=== PATIENT | male | born 1970 | race African-American/Black ===

== ENCOUNTER 2018-09-20 13:58 | Inpatient (IN) | payer OTHER ==
[2018-09-20 17:37] VITALS: BMI 743.6
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
[2018-09-20] MEDS ORDERED: MAG HYDROX/AL HYDROX/SIMETH 30 ML UNIT-DOSE CUP PO PRN (19:25)
[2018-09-20] MEDS ORDERED: MAGNESIUM CITRATE 300 ML BOTTLE PO PRN (19:25)
[2018-09-20] MEDS ORDERED: MAGNESIUM HYDROX 2400MG/30ML ORAL SUSPENSION 30 ML CUP PO PRN (19:25)
[2018-09-20] MEDS ORDERED: cloNIDine HCL 0.1 MG TABLET PO PRN (19:26)
[2018-09-20] MEDS ORDERED: TUBERCULIN PPD 5 TU/0.1ML VIAL ID ONE (20:31)
[2018-09-20] MEDS: THIAMINE HCL 100 MG TABLET (FP) PO SCH (21:22)
[2018-09-20] MEDS: MELATONIN 5 MG TABLETS PO PRN (21:22)
[2018-09-20] MEDS: hydrOXYzine PAMOATE 50 MG CAPSULE (FP) PO PRN (21:23)
[2018-09-21] MEDS: guaiFENesin/D-METHORPHAN HB 10 ML UNIT-DOSE CUPS PO PRN ×2 (07:00→21:38)
[2018-09-21] MEDS: PRENATAL VITAMINS W/ FOLIC ACID TABLET (FP) PO SCH (11:25)
[2018-09-21] MEDS: ATENOLOL 50 MG TABLET (FP) PO SCH (11:25)
[2018-09-21] MEDS: ACETAMINOPHEN 325 MG TABLET (FP) PO PRN ×2 (11:28→21:39)
[2018-09-21] MEDS ORDERED: PNEUMOC 13-VAL CONJ-DIP CRM/PF 0.5 ML DISP.SYRIN IM ONE (12:00)
[2018-09-21] MEDS ORDERED: PNEUMOCOCCAL 23 VACCINE 0.5 ML VIAL IM ONE (12:00)
[2018-09-21 12:10] LABS: HEMATOCRIT 37.7 % (35.4-49); HEMOGLOBIN 12.8 GM/dL (11.7-16.9); MCH 30.5 pg (25.7-33.7); MCHC 33.9 g/dl (32.0-35.9); MEAN PLT VOLUME 8.9 fl (7.5-11.1); PLATELET COUNT 228 K/MM3 (134-434); RBC 4.19 M/mm3 (4.00-5.60); RDW 13.9 % (11.9-15.9); WHITE BLOOD COUNT 4.9 K/mm3 (4.0-10.0)
[2018-09-21 12:32] LABS: ALBUMIN 3.1 g/dl (3.4-5.0); ALK PHOS 134 U/L (45-117); ANION GAP 6 MMOL/L (8-16); BILIRUBIN,TOTAL 0.2 mg/dL (0.2-1); BLOOD UREA NITROGEN 22 mg/dL (7-18); CHLORIDE 106 mmol/L (98-107); CO2 29 mmol/L (21-32); CREATININE 1.1 mg/dL (0.55-1.3); GLUCOSE,RANDOM 103 mg/dL (74-106); POTASSIUM 3.9 mmol/L (3.5-5.1); SGOT/AST 26 U/L (15-37); SGPT/ALT 29 U/L (13-61); SODIUM 141 mmol/L (136-145); TOT PROT 7.6 g/dl (6.4-8.2)
--- NOTE | 2018-09-21 16:55 | CONSULT ---
[facility] Psychiatric Consult - Data Date of interview: 09/21/18 Admission source: [facility] Identifying data: First admission to [facility] for this 48 y/o AA male self- referred for rehabilitation treatment to consolidate sobriety achieved at [facility] prior to [facility] visit. Direct admisssion to [address] Patient is single , a father of three, domiciled, unemployed and supported on odd jobs. Substance Abuse History: Discussed with the patient. Mr Horton declines to elaborate on his patterns of substance abuse. " I sniff heroin, I use cocaine and that 's all people need to know ". No details offered. See [facility] report : Smoking history: Current every day smoker. Have you smoked in the past 12 months: Yes. Aproximately how many cigarettes per day: 20. Hx Chewing Tobacco Use: Yes. Initiated information on smoking cessation: Yes. 'Breaking Loose' booklet given: 09/20/18. - Substance & Tx. History. Hx Alcohol Use: No. Hx Substance Use: Yes. Substance Use Type: Cocaine, Heroin. Hx Substance Use Treatment: Yes (completed) Medical History: Hypertension. Psychiatric History: Patient denies history of mental illness or psychiatric hospitalizations. No reported history of suicide attempts. No contact with psychiatric OPD care providers. Physical/Sexual Abuse/Trauma History: Patient denies history of abuse. Additional Comment: Urine Drug Screen Results: MTD-Methadone. Noted. Mental Status Exam - Mental Status Exam Alert and Oriented to: Time, Place, Person Cognitive Function: Good Patient Appearance: Well Groomed Mood: Withdrawn, Apprehensive Affect: Mood Congruent Patient Behavior: Fatigued, Appropriate, Cooperative Speech Pattern: Clear Voice Loudness: Normal Thought Process: Goal Oriented Thought Disorder: Not Present Hallucinations: Denies Suicidal Ideation: Denies Homicidal Ideation: Denies Insight/Judgement: Fair Sleep: Poorly, Difficulty falling asleep Appetite: Good Muscle strength/Tone: Normal Gait/Station: Normal Psychiatric Findings - Problem List ([place] 1, 2,3) (1) Heroin dependence Current Visit: Yes Status: Chronic (2) Nicotine dependence Current Visit: Yes Status: Chronic (3) Insomnia Current Visit: Yes Status: Chronic - Initial Treatment Plan Initial Treatment Plan: Psychoeducation. Sleep hygiene. NA meetings. Individual + group + supportive therapy. Motivational sessions (to encourage maintenance of abstinence) to be conducted throughout hospital course. Interventions for relapse prevention (MAT initiatives : naltrexone, suboxone / NA doctrine, counseling, psychotherapy) will be presented to patient during therapy sessions. Hypnotic medications discussed. Patient has expressed his preference for trazodone. Will start trazodone 50 mg po hs. Side effects/benefits discussed. Patient is made aware of the risk of priapism and he is instructed to alert MD/RN in case of occurrence of painful/prolonged erection. Consent ( verbal) granted to MD. H + P report : appreciated. Observation.
[2018-09-21] MEDS: THIAMINE HCL 100 MG TABLET (FP) PO SCH (21:38)
[2018-09-21] MEDS: traZODone HCL 50 MG TABLET (FP) PO SCH (21:38)
[2018-09-21] MEDS: MELATONIN 5 MG TABLETS PO PRN (21:39)
[2018-09-21] MEDS: P-EPHED 60MG/TRIPROLIDI 2.5MG TABLET PO PRN (21:40)
[2018-09-22] MEDS: P-EPHED 60MG/TRIPROLIDI 2.5MG TABLET PO PRN (06:15)
[2018-09-22] MEDS: ACETAMINOPHEN 325 MG TABLET (FP) PO PRN (06:16)
[2018-09-22] MEDS: guaiFENesin/D-METHORPHAN HB 10 ML UNIT-DOSE CUPS PO PRN ×2 (06:16→21:44)
[2018-09-22] MEDS: PRENATAL VITAMINS W/ FOLIC ACID TABLET (FP) PO SCH (10:21)
[2018-09-22] MEDS: hydrOXYzine PAMOATE 50 MG CAPSULE (FP) PO PRN ×2 (10:21→21:45)
[2018-09-22] MEDS: ATENOLOL 50 MG TABLET (FP) PO SCH (10:21)
[2018-09-22] MEDS: NICOTINE POLACRILEX 4 MG GUM BC PRN (10:25)
[2018-09-22] MEDS ORDERED: ONDANSETRON *ODT* 4 MG TABLET SL PRN (11:00)
[2018-09-22] MEDS: THIAMINE HCL 100 MG TABLET (FP) PO SCH (21:44)
[2018-09-22] MEDS: MELATONIN 5 MG TABLETS PO PRN (21:44)
[2018-09-22] MEDS: traZODone HCL 50 MG TABLET (FP) PO SCH (21:44)
[2018-09-23] MEDS: P-EPHED 60MG/TRIPROLIDI 2.5MG TABLET PO PRN ×3 (06:30→21:21)
[2018-09-23] MEDS: guaiFENesin/D-METHORPHAN HB 10 ML UNIT-DOSE CUPS PO PRN ×3 (06:31→21:21)
[2018-09-23] MEDS: PRENATAL VITAMINS W/ FOLIC ACID TABLET (FP) PO SCH (09:48)
[2018-09-23] MEDS: ATENOLOL 50 MG TABLET (FP) PO SCH (09:48)
[2018-09-23] MEDS: hydrOXYzine PAMOATE 50 MG CAPSULE (FP) PO PRN (09:51)
[2018-09-23] MEDS: ACETAMINOPHEN 325 MG TABLET (FP) PO PRN (09:52)
[2018-09-23] MEDS: NICOTINE 21 MG/24 HOURS TOPICAL PATCH TD SCH (14:06)
[2018-09-23] MEDS: IBUPROFEN 400 MG TABLET (FP) PO PRN ×2 (14:06→21:21)
--- NOTE | 2018-09-23 14:11 | PN ---
S Progress Note Note: PT C/O LEFT ANKLE PAIN AND SWELLING X MORE THAN ONE WEEK. PT REPORTS HE IS NOT SURE IF HE FELL OR TRUAMATIZED HIS ANKLE. PT WAS ADMITTED YESTERDAY WITH SAME COMPLAINT. ALERT O X 3. LABS REVIEWED WITH PATIENT. Vital Signs 09/23/18 06:57 Temperature 98.4 F Pulse Rate 69 Respiratory 18 Rate Blood Pressure 131/76 Laboratory Tests 09/21/18 09/21/18 09/21/18 09:30 09:30 09:30 WBC 4.9 RBC 4.19 Hgb 12.8 Hct 37.7 MCV 90.0 MCH 30.5 MCHC 33.9 RDW 13.9 Plt Count 228 MPV 8.9 Sodium 141 Potassium 3.9 Chloride 106 Carbon Dioxide 29 Anion Gap 6 L BUN 22 H Creatinine 1.1 Creat Clearance w eGFR > 60 Random Glucose 103 Calcium 9.0 Total Bilirubin 0.2 AST 26 ALT 29 Alkaline Phosphatase 134 H Total Protein 7.6 Albumin 3.1 L RPR Titer Nonreactive HIV 1&2 Antibody Screen HIV P24 Antigen 09/23/18 06:00 WBC RBC Hgb Hct MCV MCH MCHC RDW Plt Count MPV Sodium Potassium Chloride Carbon Dioxide Anion Gap BUN Creatinine Creat Clearance w eGFR Random Glucose Calcium Total Bilirubin AST ALT Alkaline Phosphatase Total Protein Albumin RPR Titer HIV 1&2 Antibody Screen Negative HIV P24 Antigen Negative LEFT LEG: SLIGHT REDNESS AND SWELLING TO BONY LATERAL/MEDIAL ASPECTS OF LEFT ANKLE. ACTIVE ROM. NO PEDAL EDEMA. PLAN:XRAY LEFT ANKLE R/O FRACTURE.
[2018-09-23] MEDS: THIAMINE HCL 100 MG TABLET (FP) PO SCH (21:20)
[2018-09-23] MEDS: traZODone HCL 50 MG TABLET (FP) PO SCH (21:20)
[2018-09-23] MEDS: MENTHOL/PHENOL 1 EACH UD MM PRN (21:22)
[2018-09-24] MEDS: P-EPHED 60MG/TRIPROLIDI 2.5MG TABLET PO PRN (06:45)
[2018-09-24] MEDS: guaiFENesin/D-METHORPHAN HB 10 ML UNIT-DOSE CUPS PO PRN ×2 (06:46→21:23)
[2018-09-24] MEDS: hydrOXYzine PAMOATE 50 MG CAPSULE (FP) PO PRN (09:58)
[2018-09-24] MEDS: IBUPROFEN 400 MG TABLET (FP) PO PRN (09:58)
[2018-09-24] MEDS: ATENOLOL 50 MG TABLET (FP) PO SCH (09:58)
[2018-09-24] MEDS: PRENATAL VITAMINS W/ FOLIC ACID TABLET (FP) PO SCH (09:58)
[2018-09-24] MEDS: NICOTINE 21 MG/24 HOURS TOPICAL PATCH TD SCH (09:58)
[2018-09-24 12:44] LABS: URINE APPEARANCE CLEAR; URINE BILIRUBIN NEGATIVE (<2.0 mg/dL); URINE COLOR YELLOW; URINE GLUCOSE (UA) NEGATIVE (NEGATIVE); URINE KETONE NEGATIVE (NEGATIVE); URINE LEUK ESTERASE TRACE (NEGATIVE); URINE NITRITE NEGATIVE (NEGATIVE); URINE PROTEIN NEGATIVE (NEGATIVE); URINE UROBILINOGEN NEGATIVE mg/dL (0.2-1.0)
[2018-09-24 12:46] LABS: EPI CELLS RARE /HPF (FEW)
--- NOTE | 2018-09-24 15:35 | PN ---
Psychiatric Progress Note Vital Signs: Vital Signs Period Temp Pulse Resp BP Sys/Paulino Pulse Ox Last 24 Hr 97.8 F 75 17-18 147/95 Date of Session: 09/24/18 Chief Complaint:: [place] very depressed. HPI: Patient adressed Opioid dependence comorbid with Substance induced mood disorder. ROS: Significant for HTN. Current Medications: Active Medications Generic Name Dose Route Start Last Admin Trade Name Freq PRN Reason Stop Dose Admin Acetaminophen 650 mg 09/20/18 19:25 09/23/18 09:52 Tylenol - PO 650 mg Q4H PRN Administration FEVER Al Hydroxide/Mg Hydroxide 30 ml 09/20/18 19:25 Mylanta Oral Suspension - PO Q6H PRN DYSPEPSIA Atenolol 50 mg 09/21/18 10:00 09/24/18 09:58 Tenormin - PO 50 mg DAILY BRITTNY Administration Clonidine 0.1 mg 09/20/18 19:26 Catapres - PO Q4H PRN ANXIETY Cyclobenzaprine HCl 10 mg 09/24/18 22:00 Flexeril - PO TID BRITTNY Eucalyptus/Menthol/Phenol/Sorbitol 1 each 09/20/18 19:25 09/23/18 21:22 Cepastat Lozenge - MM 1 each Q4H PRN Administration SORE THROAT Guaifenesin 10 ml 09/20/18 19:25 09/24/18 06:46 Robitussin Dm - PO 10 ml Q6H PRN Administration COUGH Hydroxyzine Pamoate 50 mg 09/20/18 19:25 09/24/18 09:58 Vistaril - PO 50 mg Q4H PRN Administration AGITATION Ibuprofen 400 mg 09/20/18 19:25 09/24/18 09:58 Motrin - PO 400 mg Q6H PRN Administration Pain level 4-6 Loperamide HCl 4 mg 09/20/18 19:25 Imodium - PO Q6H PRN DIARRHEA Magnesium Citrate 300 ml 09/20/18 19:25 Citroma - PO Q48H PRN CONSTIPATION Magnesium Hydroxide 30 ml 09/20/18 19:25 Milk Of Magnesia - PO DAILY PRN CONSTIPATION Melatonin 5 mg 09/20/18 22:00 09/22/18 21:44 Melatonin PO 5 mg HS PRN Administration INSOMNIA Nicotine 21 mg 09/23/18 13:45 09/24/18 09:58 Nicoderm Patch - TD 21 mg DAILY BRITTNY Administration Nicotine Polacrilex 4 mg 09/20/18 19:25 09/22/18 10:25 Nicorette Gum - BC 4 mg Q2H PRN Administration NICOTINE REPLACEMENT RX Ondansetron HCl 8 mg 09/22/18 11:00 Zofran Odt - SL Q8H PRN NAUSEA AND/OR VOMITING Multivit/Folic Acid/Iron 1 tab 09/21/18 10:00 09/24/18 09:58 Vitamins (Sjr) - PO 1 tab DAILY BRITTNY Administration Pseudoephedrine/Triprolidine 1 combo 09/20/18 19:25 09/24/18 06:45 Actifed - PO 1 combo TID PRN Administration NASAL CONGESTION Thiamine HCl 100 mg 09/20/18 22:00 09/23/18 21:20 Vitamin B1 - PO 100 mg HS BRITTNY Administration Trazodone HCl 50 mg 09/21/18 22:00 09/23/18 21:20 Desyrel - PO 50 mg HS BRITTNY Administration Current Side Effect: No Lab tests ordered: No Lab tests reviewed: Yes Provider note:: Chart was revuewed ,Attending admission notes has been read and appreciated.PATIENT WAS SEEN .HE ADDREESED ONGOING DEPRESSED MOOD,SLEEPING DIFFICULTIES.Properties of Cymbalta has been discussed with the patient including side effects,benefits and dose adjustment .Trazodone 50 mg po hs will be adjusted to 100 mg po hs,start Cymbalta 20 mg po daily. Supportive therapy has been provided. Total face to face time:: 25 Mental Status Exam - Mental Status Exam Alert and Oriented to: Time, Place, Person Cognitive Function: Grossly Intact Patient Appearance: Unkempt Mood: Sad, Anxious Affect: Mood Congruent, Constricted Patient Behavior: Cooperative Speech Pattern: Clear Voice Loudness: Normal Thought Process: Goal Oriented Thought Disorder: Not Present Hallucinations: Denies Suicidal Ideation: Denies Homicidal Ideation: Denies Insight/Judgement: Fair Sleep: Fair Appetite: Good Muscle strength/Tone: Normal Gait/Station: Normal Psychiatric Treatment Plan - Problem List (1) Hypertension Current Visit: Yes (2) Tobacco use disorder Current Visit: Yes (3) Heroin dependence Current Visit: Yes (4) Nicotine dependence Current Visit: Yes (5) Substance-induced sleep disorder Current Visit: Yes (6) Substance induced mood disorder Current Visit: Yes
[2018-09-24] MEDS: DULoxetine HCL 20 MG CAPSULE.DR (FP) PO SCH (17:05)
[2018-09-24] MEDS: traZODone HCL 50 MG TABLET (FP) PO SCH (21:21)
[2018-09-24] MEDS: THIAMINE HCL 100 MG TABLET (FP) PO SCH (21:22)
[2018-09-24] MEDS: CYCLOBENZAPRINE HCL 10 MG TABLET (FP) PO SCH (21:23)
[2018-09-25] MEDS: CYCLOBENZAPRINE HCL 10 MG TABLET (FP) PO SCH ×3 (07:16→21:17)
[2018-09-25] MEDS: ATENOLOL 50 MG TABLET (FP) PO SCH (10:47)
[2018-09-25] MEDS: NICOTINE 21 MG/24 HOURS TOPICAL PATCH TD SCH (10:47)
[2018-09-25] MEDS: PRENATAL VITAMINS W/ FOLIC ACID TABLET (FP) PO SCH (10:47)
[2018-09-25] MEDS: DULoxetine HCL 20 MG CAPSULE.DR (FP) PO SCH (10:47)
[2018-09-25] MEDS: THIAMINE HCL 100 MG TABLET (FP) PO SCH (21:16)
[2018-09-25] MEDS: traZODone HCL 50 MG TABLET (FP) PO SCH (21:16)
[2018-09-25] MEDS: P-EPHED 60MG/TRIPROLIDI 2.5MG TABLET PO PRN (21:18)
[2018-09-25] MEDS: ACETAMINOPHEN 325 MG TABLET (FP) PO PRN (21:18)
[2018-09-26] MEDS: P-EPHED 60MG/TRIPROLIDI 2.5MG TABLET PO PRN ×2 (07:09→21:19)
[2018-09-26] MEDS: CYCLOBENZAPRINE HCL 10 MG TABLET (FP) PO SCH ×3 (07:10→21:18)
[2018-09-26] MEDS: ATENOLOL 50 MG TABLET (FP) PO SCH (10:16)
[2018-09-26] MEDS: DULoxetine HCL 20 MG CAPSULE.DR (FP) PO SCH (10:16)
[2018-09-26] MEDS: PRENATAL VITAMINS W/ FOLIC ACID TABLET (FP) PO SCH (10:16)
[2018-09-26] MEDS: NICOTINE 21 MG/24 HOURS TOPICAL PATCH TD SCH (10:17)
[2018-09-26] MEDS: traZODone HCL 50 MG TABLET (FP) PO SCH (21:18)
[2018-09-26] MEDS: THIAMINE HCL 100 MG TABLET (FP) PO SCH (21:18)
[2018-09-26] MEDS: IBUPROFEN 400 MG TABLET (FP) PO PRN (21:18)
[2018-09-26] MEDS: guaiFENesin/D-METHORPHAN HB 10 ML UNIT-DOSE CUPS PO PRN (21:19)
[2018-09-27] MEDS: CYCLOBENZAPRINE HCL 10 MG TABLET (FP) PO SCH ×3 (06:42→21:18)
[2018-09-27] MEDS: guaiFENesin/D-METHORPHAN HB 10 ML UNIT-DOSE CUPS PO PRN (06:44)
[2018-09-27] MEDS: P-EPHED 60MG/TRIPROLIDI 2.5MG TABLET PO PRN (06:45)
[2018-09-27] MEDS: DULoxetine HCL 20 MG CAPSULE.DR (FP) PO SCH (09:51)
[2018-09-27] MEDS: NICOTINE 21 MG/24 HOURS TOPICAL PATCH TD SCH (09:51)
[2018-09-27] MEDS: PRENATAL VITAMINS W/ FOLIC ACID TABLET (FP) PO SCH (09:51)
[2018-09-27] MEDS: ATENOLOL 50 MG TABLET (FP) PO SCH (09:51)
[2018-09-27] MEDS: RANITIDINE HCL 150 MG TABLET (FP) PO SCH ×2 (14:09→21:18)
--- NOTE | 2018-09-27 14:52 | PN ---
[facility] Progress Note Note: C/O HEARTBURN AND ANTACID GIVEN NOT EFFECTIVE. REPORTS HX OF GERD AND NEXIUM USE IN THE PAST. Vital Signs 09/27/18 09/27/18 07:16 10:00 Temperature 98.3 F Pulse Rate 69 87 Respiratory 18 Rate Blood Pressure 137/83 121/78 Laboratory Tests 09/21/18 09/21/18 09/21/18 09:30 09:30 09:30 WBC 4.9 RBC 4.19 Hgb 12.8 Hct 37.7 MCV 90.0 MCH 30.5 MCHC 33.9 RDW 13.9 Plt Count 228 MPV 8.9 Sodium 141 Potassium 3.9 Chloride 106 Carbon Dioxide 29 Anion Gap 6 L BUN 22 H Creatinine 1.1 Creat Clearance w eGFR > 60 Random Glucose 103 Calcium 9.0 Total Bilirubin 0.2 AST 26 ALT 29 Alkaline Phosphatase 134 H Total Protein 7.6 Albumin 3.1 L Urine Color Urine Appearance Urine pH Ur Specific [place] Urine Protein Urine Glucose (UA) Urine Ketones Urine Blood Urine Nitrite Urine Bilirubin Urine Urobilinogen Ur Leukocyte Esterase Urine WBC (Auto) Urine RBC (Auto) Ur Epithelial Cells RPR Titer Nonreactive HIV 1&2 Antibody Screen HIV P24 Antigen 09/23/18 09/24/18 06:00 10:55 WBC RBC Hgb Hct MCV MCH MCHC RDW Plt Count MPV Sodium Potassium Chloride Carbon Dioxide Anion Gap BUN Creatinine Creat Clearance w eGFR Random Glucose Calcium Total Bilirubin AST ALT Alkaline Phosphatase Total Protein Albumin Urine Color Yellow Urine Appearance Clear Urine pH 6.0 Ur Specific [place] 1.024 Urine Protein Negative Urine Glucose (UA) Negative Urine Ketones Negative Urine Blood Negative Urine Nitrite Negative Urine Bilirubin Negative Urine Urobilinogen Negative Ur Leukocyte Esterase Trace Urine WBC (Auto) 9 Urine RBC (Auto) 1 Ur Epithelial Cells Rare RPR Titer HIV 1&2 Antibody Screen Negative HIV P24 Antigen Negative NAD A:GERD PLAN:ZANTAC 150 MG PO BID
[2018-09-27] MEDS: THIAMINE HCL 100 MG TABLET (FP) PO SCH (21:17)
[2018-09-27] MEDS: traZODone HCL 50 MG TABLET (FP) PO SCH (21:18)
[2018-09-28] MEDS: CYCLOBENZAPRINE HCL 10 MG TABLET (FP) PO SCH ×3 (06:50→21:18)
[2018-09-28] MEDS: P-EPHED 60MG/TRIPROLIDI 2.5MG TABLET PO PRN ×2 (06:52→21:18)
[2018-09-28] MEDS: ATENOLOL 50 MG TABLET (FP) PO SCH (10:08)
[2018-09-28] MEDS: PRENATAL VITAMINS W/ FOLIC ACID TABLET (FP) PO SCH (10:08)
[2018-09-28] MEDS: DULoxetine HCL 20 MG CAPSULE.DR (FP) PO SCH (10:08)
[2018-09-28] MEDS: RANITIDINE HCL 150 MG TABLET (FP) PO SCH ×2 (10:08→21:18)
[2018-09-28] MEDS: NICOTINE 21 MG/24 HOURS TOPICAL PATCH TD SCH (10:09)
[2018-09-28] MEDS: traZODone HCL 50 MG TABLET (FP) PO SCH (21:18)
[2018-09-28] MEDS: guaiFENesin/D-METHORPHAN HB 10 ML UNIT-DOSE CUPS PO PRN (21:18)
[2018-09-28] MEDS: THIAMINE HCL 100 MG TABLET (FP) PO SCH (21:18)
[2018-09-28] MEDS: IBUPROFEN 400 MG TABLET (FP) PO PRN (21:19)
[2018-09-29] MEDS: CYCLOBENZAPRINE HCL 10 MG TABLET (FP) PO SCH ×3 (08:09→21:22)
[2018-09-29] MEDS: DULoxetine HCL 20 MG CAPSULE.DR (FP) PO SCH (10:01)
[2018-09-29] MEDS: PRENATAL VITAMINS W/ FOLIC ACID TABLET (FP) PO SCH (10:01)
[2018-09-29] MEDS: ATENOLOL 50 MG TABLET (FP) PO SCH (10:01)
[2018-09-29] MEDS: RANITIDINE HCL 150 MG TABLET (FP) PO SCH ×2 (10:01→21:22)
[2018-09-29] MEDS: NICOTINE 21 MG/24 HOURS TOPICAL PATCH TD SCH (10:01)
[2018-09-29] MEDS: P-EPHED 60MG/TRIPROLIDI 2.5MG TABLET PO PRN ×2 (10:03→21:23)
[2018-09-29] MEDS: ACETAMINOPHEN 325 MG TABLET (FP) PO PRN (10:04)
[2018-09-29] MEDS: LOPERAMIDE HCL 2 MG CAPSULE PO PRN ×2 (11:09→21:24)
[2018-09-29] MEDS: traZODone HCL 50 MG TABLET (FP) PO SCH (21:22)
[2018-09-29] MEDS: guaiFENesin/D-METHORPHAN HB 10 ML UNIT-DOSE CUPS PO PRN (21:23)
[2018-09-29] MEDS: THIAMINE HCL 100 MG TABLET (FP) PO SCH (21:24)
[2018-09-30] MEDS: CYCLOBENZAPRINE HCL 10 MG TABLET (FP) PO SCH ×3 (07:33→21:58)
[2018-09-30] MEDS: RANITIDINE HCL 150 MG TABLET (FP) PO SCH ×2 (10:23→21:58)
[2018-09-30] MEDS: DULoxetine HCL 20 MG CAPSULE.DR (FP) PO SCH (10:23)
[2018-09-30] MEDS: PRENATAL VITAMINS W/ FOLIC ACID TABLET (FP) PO SCH (10:23)
[2018-09-30] MEDS: ATENOLOL 50 MG TABLET (FP) PO SCH (10:23)
[2018-09-30] MEDS: NICOTINE 21 MG/24 HOURS TOPICAL PATCH TD SCH (10:23)
[2018-09-30] MEDS: ACETAMINOPHEN 325 MG TABLET (FP) PO PRN (14:21)
[2018-09-30] MEDS: guaiFENesin/D-METHORPHAN HB 10 ML UNIT-DOSE CUPS PO PRN (14:21)
[2018-09-30] MEDS: traZODone HCL 50 MG TABLET (FP) PO SCH (21:57)
[2018-09-30] MEDS: THIAMINE HCL 100 MG TABLET (FP) PO SCH (21:58)
[2018-10-01] MEDS: CYCLOBENZAPRINE HCL 10 MG TABLET (FP) PO SCH ×3 (06:23→21:10)
[2018-10-01] MEDS: P-EPHED 60MG/TRIPROLIDI 2.5MG TABLET PO PRN (06:24)
[2018-10-01] MEDS: ATENOLOL 50 MG TABLET (FP) PO SCH (10:00)
[2018-10-01] MEDS: DULoxetine HCL 20 MG CAPSULE.DR (FP) PO SCH (10:00)
[2018-10-01] MEDS: NICOTINE 21 MG/24 HOURS TOPICAL PATCH TD SCH (10:00)
[2018-10-01] MEDS: PRENATAL VITAMINS W/ FOLIC ACID TABLET (FP) PO SCH (10:00)
[2018-10-01] MEDS: RANITIDINE HCL 150 MG TABLET (FP) PO SCH ×2 (10:00→21:10)
--- NOTE | 2018-10-01 14:31 | PN ---
[facility] Progress Note Note: 48 Y/O MALE WITH A HX OF HEROIN/COCAINE DEPENDENCE WITH OCCASIONAL ALCOHOL USE HERE IN REHAB AND REQUESTING MAT. PT PLANS TO FOLLOW UP TREATMENT AT [facility] SUBOXONE PROGRAM UPON DISCHARGE. PT REPORTS LAS USE OF HEROIN WAS 09/10/18, USING 17 BAGS/DAY. DETOXED AT [facility] WITH METHADONE LAST 10 MG ON 09/20/18. PMHx: HTN AND ACID REFLUX SXHx:MULTIPLE ABDOMINAL SX PSYCH OF DEPRESSION SOCIAL/VOCATIONAL Hx: UNDOMICILED;/12TH GRADE/NOT WORKING Home Medications Medication Instructions Recorded Atenolol [Tenormin -] 50 mg PO DAILY 09/20/18 Active Medications Generic Name Dose Route Start Last Admin Trade Name Freq PRN Reason Stop Dose Admin Acetaminophen 650 mg 09/20/18 19:25 09/30/18 14:21 Tylenol - PO 650 mg Q4H PRN Administration FEVER Al Hydroxide/Mg Hydroxide 30 ml 09/20/18 19:25 09/25/18 17:06 Mylanta Oral Suspension - PO 30 ml Q6H PRN Administration DYSPEPSIA Atenolol 50 mg 09/21/18 10:00 10/01/18 10:00 Tenormin - PO 50 mg DAILY BRITTNY Administration Clonidine 0.1 mg 09/20/18 19:26 Catapres - PO Q4H PRN ANXIETY Cyclobenzaprine HCl 10 mg 09/24/18 22:00 10/01/18 06:23 Flexeril - PO 10 mg TID BRITTNY Administration Duloxetine HCl 20 mg 09/24/18 15:45 10/01/18 10:00 Cymbalta - PO 20 mg DAILY BRITTNY Administration Eucalyptus/Menthol/Phenol/Sorbitol 1 each 09/20/18 19:25 09/23/18 21:22 Cepastat Lozenge - MM 1 each Q4H PRN Administration SORE THROAT Guaifenesin 10 ml 09/20/18 19:25 09/30/18 14:21 Robitussin Dm - PO 10 ml Q6H PRN Administration COUGH Hydroxyzine Pamoate 50 mg 09/20/18 19:25 09/24/18 09:58 Vistaril - PO 50 mg Q4H PRN Administration AGITATION Ibuprofen 400 mg 09/20/18 19:25 09/28/18 21:19 Motrin - PO 400 mg Q6H PRN Administration Pain level 4-6 Loperamide HCl 4 mg 09/20/18 19:25 09/29/18 21:24 Imodium - PO 4 mg Q6H PRN Administration DIARRHEA Magnesium Citrate 300 ml 09/20/18 19:25 Citroma - PO Q48H PRN CONSTIPATION Magnesium Hydroxide 30 ml 09/20/18 19:25 Milk Of Magnesia - PO DAILY PRN CONSTIPATION Melatonin 5 mg 09/20/18 22:00 09/22/18 21:44 Melatonin PO 5 mg HS PRN Administration INSOMNIA Nicotine 21 mg 09/23/18 13:45 10/01/18 10:00 Nicoderm Patch - TD 21 mg DAILY BRITTNY Administration Nicotine Polacrilex 4 mg 09/20/18 19:25 09/22/18 10:25 Nicorette Gum - BC 4 mg Q2H PRN Administration NICOTINE REPLACEMENT RX Ondansetron HCl 8 mg 09/22/18 11:00 Zofran Odt - SL Q8H PRN NAUSEA AND/OR VOMITING Multivit/Folic Acid/Iron 1 tab 09/21/18 10:00 10/01/18 10:00 Vitamins (Sjr) - PO 1 tab DAILY BRITTNY Administration Pseudoephedrine/Triprolidine 1 combo 09/20/18 19:25 10/01/18 06:24 Actifed - PO 1 combo TID PRN Administration NASAL CONGESTION Ranitidine HCl 150 mg 09/27/18 12:45 10/01/18 10:00 Zantac - PO 150 mg BID BRITTNY Administration Thiamine HCl 100 mg 09/20/18 22:00 09/30/18 21:58 Vitamin B1 - PO 100 mg HS BRITTNY Administration Trazodone HCl 100 mg 09/24/18 15:42 09/30/18 21:57 Desyrel - PO 100 mg HS BRITTNY Administration Laboratory Tests 09/21/18 09/21/18 09/21/18 09:30 09:30 09:30 WBC 4.9 RBC 4.19 Hgb 12.8 Hct 37.7 MCV 90.0 MCH 30.5 MCHC 33.9 RDW 13.9 Plt Count 228 MPV 8.9 Sodium 141 Potassium 3.9 Chloride 106 Carbon Dioxide 29 Anion Gap 6 L BUN 22 H Creatinine 1.1 Creat Clearance w eGFR > 60 Random Glucose 103 Calcium 9.0 Total Bilirubin 0.2 AST 26 ALT 29 Alkaline Phosphatase 134 H Total Protein 7.6 Albumin 3.1 L Urine Color Urine Appearance Urine pH Ur Specific [place] Urine Protein Urine Glucose (UA) Urine Ketones Urine Blood Urine Nitrite Urine Bilirubin Urine Urobilinogen Ur Leukocyte Esterase Urine WBC (Auto) Urine RBC (Auto) Ur Epithelial Cells RPR Titer Nonreactive HIV 1&2 Antibody Screen HIV P24 Antigen 09/23/18 09/24/18 06:00 10:55 WBC RBC Hgb Hct MCV MCH MCHC RDW Plt Count MPV Sodium Potassium Chloride Carbon Dioxide Anion Gap BUN Creatinine Creat Clearance w eGFR Random Glucose Calcium Total Bilirubin AST ALT Alkaline Phosphatase Total Protein Albumin Urine Color Yellow Urine Appearance Clear Urine pH 6.0 Ur Specific [place] 1.024 Urine Protein Negative Urine Glucose (UA) Negative Urine Ketones Negative Urine Blood Negative Urine Nitrite Negative Urine Bilirubin Negative Urine Urobilinogen Negative Ur Leukocyte Esterase Trace Urine WBC (Auto) 9 Urine RBC (Auto) 1 Ur Epithelial Cells Rare RPR Titer HIV 1&2 Antibody Screen Negative HIV P24 Antigen Negative ALERT O X 3. OOB IN NAD A:OPIOID DEPENDENCE PLAN:POC UDS WILL START SUBOXONE 2MG/0.5 MG SL BID PENDING UDS RESULT. (DISCUSSED WITH PT AND HE AGREES TO THIS PLAN OF CARE).
[2018-10-01] MEDS: THIAMINE HCL 100 MG TABLET (FP) PO SCH (21:10)
[2018-10-01] MEDS: traZODone HCL 50 MG TABLET (FP) PO SCH (21:11)
[2018-10-02] MEDS: CYCLOBENZAPRINE HCL 10 MG TABLET (FP) PO SCH ×3 (07:00→21:11)
[2018-10-02] MEDS: P-EPHED 60MG/TRIPROLIDI 2.5MG TABLET PO PRN (07:10)
[2018-10-02] MEDS: ATENOLOL 50 MG TABLET (FP) PO SCH (09:46)
[2018-10-02] MEDS: DULoxetine HCL 20 MG CAPSULE.DR (FP) PO SCH (09:46)
[2018-10-02] MEDS: PRENATAL VITAMINS W/ FOLIC ACID TABLET (FP) PO SCH (09:46)
[2018-10-02] MEDS: RANITIDINE HCL 150 MG TABLET (FP) PO SCH ×2 (09:47→21:11)
[2018-10-02] MEDS: NICOTINE 21 MG/24 HOURS TOPICAL PATCH TD SCH (09:47)
[2018-10-02] MEDS: THIAMINE HCL 100 MG TABLET (FP) PO SCH (21:11)
[2018-10-02] MEDS: traZODone HCL 50 MG TABLET (FP) PO SCH (21:11)
[2018-10-02] MEDS: guaiFENesin/D-METHORPHAN HB 10 ML UNIT-DOSE CUPS PO PRN (21:12)
[2018-10-03] MEDS: CYCLOBENZAPRINE HCL 10 MG TABLET (FP) PO SCH ×3 (06:09→21:18)
[2018-10-03] MEDS: DULoxetine HCL 20 MG CAPSULE.DR (FP) PO SCH (10:02)
[2018-10-03] MEDS: PRENATAL VITAMINS W/ FOLIC ACID TABLET (FP) PO SCH (10:02)
[2018-10-03] MEDS: RANITIDINE HCL 150 MG TABLET (FP) PO SCH ×2 (10:02→21:18)
[2018-10-03] MEDS: NICOTINE 21 MG/24 HOURS TOPICAL PATCH TD SCH (10:02)
[2018-10-03] MEDS: ATENOLOL 50 MG TABLET (FP) PO SCH (10:02)
[2018-10-03] MEDS: P-EPHED 60MG/TRIPROLIDI 2.5MG TABLET PO PRN ×2 (10:03→21:19)
[2018-10-03] MEDS: ACETAMINOPHEN 325 MG TABLET (FP) PO PRN (10:03)
[2018-10-03] MEDS: THIAMINE HCL 100 MG TABLET (FP) PO SCH (21:18)
[2018-10-03] MEDS: traZODone HCL 50 MG TABLET (FP) PO SCH (21:18)
[2018-10-03] MEDS: guaiFENesin/D-METHORPHAN HB 10 ML UNIT-DOSE CUPS PO PRN (21:19)
[2018-10-04] MEDS: CYCLOBENZAPRINE HCL 10 MG TABLET (FP) PO SCH ×3 (06:47→21:23)
[2018-10-04] MEDS: guaiFENesin/D-METHORPHAN HB 10 ML UNIT-DOSE CUPS PO PRN (06:48)
[2018-10-04] MEDS: MENTHOL/PHENOL 1 EACH UD MM PRN (06:49)
[2018-10-04] MEDS: P-EPHED 60MG/TRIPROLIDI 2.5MG TABLET PO PRN ×2 (06:49→21:26)
[2018-10-04] MEDS: ACETAMINOPHEN 325 MG TABLET (FP) PO PRN ×2 (10:12→21:25)
[2018-10-04] MEDS: PRENATAL VITAMINS W/ FOLIC ACID TABLET (FP) PO SCH (10:12)
[2018-10-04] MEDS: NICOTINE 21 MG/24 HOURS TOPICAL PATCH TD SCH (10:13)
[2018-10-04] MEDS: DULoxetine HCL 20 MG CAPSULE.DR (FP) PO SCH (10:13)
[2018-10-04] MEDS: ATENOLOL 50 MG TABLET (FP) PO SCH (10:13)
[2018-10-04] MEDS: RANITIDINE HCL 150 MG TABLET (FP) PO SCH ×2 (10:13→21:25)
[2018-10-04] MEDS: hydrOXYzine PAMOATE 50 MG CAPSULE (FP) PO PRN (10:14)
[2018-10-04] MEDS: THIAMINE HCL 100 MG TABLET (FP) PO SCH (21:23)
[2018-10-04] MEDS: traZODone HCL 50 MG TABLET (FP) PO SCH (21:23)
[2018-10-04] MEDS: cloNIDine HCL 0.1 MG TABLET PO PRN (21:25)
[2018-10-05] MEDS: CYCLOBENZAPRINE HCL 10 MG TABLET (FP) PO SCH ×3 (06:50→21:23)
[2018-10-05] MEDS: cloNIDine HCL 0.1 MG TABLET PO PRN ×3 (07:07→21:24)
[2018-10-05] MEDS: ATENOLOL 50 MG TABLET (FP) PO SCH (10:40)
[2018-10-05] MEDS: NICOTINE 21 MG/24 HOURS TOPICAL PATCH TD SCH (10:40)
[2018-10-05] MEDS: PRENATAL VITAMINS W/ FOLIC ACID TABLET (FP) PO SCH (10:40)
[2018-10-05] MEDS: DULoxetine HCL 20 MG CAPSULE.DR (FP) PO SCH (10:40)
[2018-10-05] MEDS: RANITIDINE HCL 150 MG TABLET (FP) PO SCH ×2 (10:43→21:23)
--- NOTE | 2018-10-05 11:45 | PN ---
[facility] Progress Note Note: UDS NEGATIVE FOR OPIATES TODAY. PT STILL REQUESTING FOR MAT DUE TO CRAVINGS. PT WILL START SUBOXONE 4 MG / 1 MG SL BID TODAY. PT IS NOT SUBOXONE NAIVE PER PERSONAL HISTORY. Vital Signs - 24 hr 10/04/18 10/05/18 10/05/18 21:00 00:30 03:30 Temperature Pulse Rate 75 Respiratory 18 18 Rate Blood Pressure 163/93 10/05/18 10/05/18 07:05 10:00 Temperature 98.4 F Pulse Rate 74 81 Respiratory 18 Rate Blood Pressure 143/85 148/78 UDS NEGATIVE NAD PLAN:SUBOXONE 4 MG/1 MG SL BID SUBOXONE 4 MG/ 1 MG SL ONCE NOW.
[2018-10-05] MEDS ORDERED: BUPRENORPHINE/NALOXONE 2 MG/0.5 MG FILM PACKET SL ONE (12:15)
[2018-10-05] MEDS: METHYL SALICYLATE/MENTHOL OINT 30 GM TUBE TP SCH ×2 (13:26→21:25)
[2018-10-05] MEDS: THIAMINE HCL 100 MG TABLET (FP) PO SCH (21:23)
[2018-10-05] MEDS: traZODone HCL 50 MG TABLET (FP) PO SCH (21:23)
[2018-10-05] MEDS: BUPRENORPHINE/NALOXONE 2 MG/0.5 MG FILM PACKET SL SCH (21:26)
[2018-10-06] MEDS: CYCLOBENZAPRINE HCL 10 MG TABLET (FP) PO SCH ×3 (06:59→21:20)
[2018-10-06] MEDS: RANITIDINE HCL 150 MG TABLET (FP) PO SCH ×2 (09:55→21:20)
[2018-10-06] MEDS: BUPRENORPHINE/NALOXONE 2 MG/0.5 MG FILM PACKET SL SCH (09:55)
[2018-10-06] MEDS: NICOTINE 21 MG/24 HOURS TOPICAL PATCH TD SCH (09:55)
[2018-10-06] MEDS: ATENOLOL 50 MG TABLET (FP) PO SCH (09:55)
[2018-10-06] MEDS: DULoxetine HCL 20 MG CAPSULE.DR (FP) PO SCH (09:56)
[2018-10-06] MEDS: PRENATAL VITAMINS W/ FOLIC ACID TABLET (FP) PO SCH (09:56)
[2018-10-06] MEDS: cloNIDine HCL 0.1 MG TABLET PO PRN ×2 (09:57→21:20)
[2018-10-06] MEDS: METHYL SALICYLATE/MENTHOL OINT 30 GM TUBE TP SCH ×2 (11:09→21:32)
--- NOTE | 2018-10-06 15:55 | PN ---
[facility] Progress Note Note: PT REQUESTING AN INCREASE IN SUBOXONE BECAUSE 2 MG IS NOT MAKING ANY DIFFERENCE IN HIS CRAVINGS. ALERT O X 3. NAD. Vital Signs - 24 hr 10/06/18 10/06/18 10/06/18 00:30 03:30 06:50 Temperature 97.9 F Pulse Rate 70 Respiratory 18 18 18 Rate Blood Pressure 131/72 10/06/18 10:00 Temperature Pulse Rate 78 Respiratory Rate Blood Pressure 129/80 PLAN:INCREASE SUBOXONE 8MG/2MG SL BID, STARTING AT 2200 TODAY.
[2018-10-06] MEDS: AMMONIUM LACTATE 12% LOTION 225 GM BOTTLE TP SCH (17:14)
[2018-10-06] MEDS: traZODone HCL 50 MG TABLET (FP) PO SCH (21:20)
[2018-10-06] MEDS: NAPROXEN 500 MG TABLET (FP) PO SCH (21:21)
[2018-10-06] MEDS: P-EPHED 60MG/TRIPROLIDI 2.5MG TABLET PO PRN (21:22)
[2018-10-06] MEDS: BUPRENORPHINE/NALOXONE 8 MG/2 MG FILM PACKET SL SCH (21:31)
[2018-10-06] MEDS: THIAMINE HCL 100 MG TABLET (FP) PO SCH (21:32)
[2018-10-07] MEDS: CYCLOBENZAPRINE HCL 10 MG TABLET (FP) PO SCH ×3 (05:54→21:05)
[2018-10-07] MEDS: METHYL SALICYLATE/MENTHOL OINT 30 GM TUBE TP SCH ×2 (09:53→21:04)
[2018-10-07] MEDS: NAPROXEN 500 MG TABLET (FP) PO SCH ×2 (09:53→21:05)
[2018-10-07] MEDS: PRENATAL VITAMINS W/ FOLIC ACID TABLET (FP) PO SCH (09:53)
[2018-10-07] MEDS: DULoxetine HCL 20 MG CAPSULE.DR (FP) PO SCH (09:53)
[2018-10-07] MEDS: ATENOLOL 50 MG TABLET (FP) PO SCH (09:53)
[2018-10-07] MEDS: AMMONIUM LACTATE 12% LOTION 225 GM BOTTLE TP SCH (09:53)
[2018-10-07] MEDS: RANITIDINE HCL 150 MG TABLET (FP) PO SCH ×2 (09:53→21:05)
[2018-10-07] MEDS: BUPRENORPHINE/NALOXONE 8 MG/2 MG FILM PACKET SL SCH ×2 (09:54→21:05)
[2018-10-07] MEDS: NICOTINE 21 MG/24 HOURS TOPICAL PATCH TD SCH (09:54)
[2018-10-07] MEDS: hydrOXYzine PAMOATE 50 MG CAPSULE (FP) PO PRN ×3 (09:56→21:06)
[2018-10-07] MEDS: P-EPHED 60MG/TRIPROLIDI 2.5MG TABLET PO PRN (14:16)
[2018-10-07] MEDS: traZODone HCL 50 MG TABLET (FP) PO SCH (21:05)
[2018-10-07] MEDS: THIAMINE HCL 100 MG TABLET (FP) PO SCH (21:05)
[2018-10-07] MEDS: MELATONIN 5 MG TABLETS PO PRN (21:08)
[2018-10-08] MEDS: CYCLOBENZAPRINE HCL 10 MG TABLET (FP) PO SCH ×3 (06:43→21:34)
[2018-10-08] MEDS: MENTHOL/PHENOL 1 EACH UD MM PRN (06:45)
[2018-10-08] MEDS: P-EPHED 60MG/TRIPROLIDI 2.5MG TABLET PO PRN ×2 (06:45→14:21)
[2018-10-08] MEDS: guaiFENesin/D-METHORPHAN HB 10 ML UNIT-DOSE CUPS PO PRN (06:45)
[2018-10-08] MEDS: PRENATAL VITAMINS W/ FOLIC ACID TABLET (FP) PO SCH (10:20)
[2018-10-08] MEDS: NICOTINE 21 MG/24 HOURS TOPICAL PATCH TD SCH (10:20)
[2018-10-08] MEDS: ATENOLOL 50 MG TABLET (FP) PO SCH (10:20)
[2018-10-08] MEDS: DULoxetine HCL 20 MG CAPSULE.DR (FP) PO SCH (10:20)
[2018-10-08] MEDS: RANITIDINE HCL 150 MG TABLET (FP) PO SCH ×2 (10:20→21:34)
[2018-10-08] MEDS: NAPROXEN 500 MG TABLET (FP) PO SCH ×2 (10:20→21:35)
[2018-10-08] MEDS: BUPRENORPHINE/NALOXONE 8 MG/2 MG FILM PACKET SL SCH ×2 (10:21→21:34)
[2018-10-08] MEDS: AMMONIUM LACTATE 12% LOTION 225 GM BOTTLE TP SCH (10:22)
[2018-10-08] MEDS: cloNIDine HCL 0.1 MG TABLET PO PRN ×2 (10:24→21:35)
[2018-10-08] MEDS: METHYL SALICYLATE/MENTHOL OINT 30 GM TUBE TP SCH ×2 (11:57→21:36)
[2018-10-08] MEDS: hydrOXYzine PAMOATE 50 MG CAPSULE (FP) PO PRN ×2 (14:20→21:35)
[2018-10-08] MEDS: ACETAMINOPHEN 325 MG TABLET (FP) PO PRN (14:20)
[2018-10-08] MEDS: THIAMINE HCL 100 MG TABLET (FP) PO SCH (21:31)
[2018-10-08] MEDS: traZODone HCL 50 MG TABLET (FP) PO SCH (21:35)
[2018-10-09] MEDS: CYCLOBENZAPRINE HCL 10 MG TABLET (FP) PO SCH ×3 (06:09→21:21)
[2018-10-09] MEDS: RANITIDINE HCL 150 MG TABLET (FP) PO SCH ×2 (09:59→21:21)
[2018-10-09] MEDS: NAPROXEN 500 MG TABLET (FP) PO SCH (09:59)
[2018-10-09] MEDS: BUPRENORPHINE/NALOXONE 8 MG/2 MG FILM PACKET SL SCH ×2 (09:59→21:23)
[2018-10-09] MEDS: DULoxetine HCL 20 MG CAPSULE.DR (FP) PO SCH (09:59)
[2018-10-09] MEDS: ATENOLOL 50 MG TABLET (FP) PO SCH (09:59)
[2018-10-09] MEDS: PRENATAL VITAMINS W/ FOLIC ACID TABLET (FP) PO SCH (09:59)
[2018-10-09] MEDS: NICOTINE 21 MG/24 HOURS TOPICAL PATCH TD SCH (09:59)
[2018-10-09] MEDS: cloNIDine HCL 0.1 MG TABLET PO PRN ×2 (10:01→21:21)
[2018-10-09] MEDS: AMMONIUM LACTATE 12% LOTION 225 GM BOTTLE TP SCH (10:03)
[2018-10-09] MEDS: METHYL SALICYLATE/MENTHOL OINT 30 GM TUBE TP SCH ×2 (10:53→21:25)
[2018-10-09] MEDS: guaiFENesin/D-METHORPHAN HB 10 ML UNIT-DOSE CUPS PO PRN (14:35)
[2018-10-09] MEDS: MENTHOL/PHENOL 1 EACH UD MM PRN (14:36)
[2018-10-09] MEDS: P-EPHED 60MG/TRIPROLIDI 2.5MG TABLET PO PRN (14:36)
[2018-10-09] MEDS: hydrOXYzine PAMOATE 50 MG CAPSULE (FP) PO PRN ×2 (14:37→21:24)
[2018-10-09] MEDS: ACETAMINOPHEN 325 MG TABLET (FP) PO PRN (14:37)
[2018-10-09] MEDS: THIAMINE HCL 100 MG TABLET (FP) PO SCH (21:21)
[2018-10-09] MEDS: traZODone HCL 50 MG TABLET (FP) PO SCH (21:21)
[2018-10-10] MEDS: CYCLOBENZAPRINE HCL 10 MG TABLET (FP) PO SCH ×3 (06:30→21:18)
[2018-10-10] MEDS: MENTHOL/PHENOL 1 EACH UD MM PRN (06:32)
[2018-10-10] MEDS: cloNIDine HCL 0.1 MG TABLET PO PRN ×2 (06:32→21:18)
[2018-10-10] MEDS: guaiFENesin/D-METHORPHAN HB 10 ML UNIT-DOSE CUPS PO PRN (06:32)
[2018-10-10] MEDS: P-EPHED 60MG/TRIPROLIDI 2.5MG TABLET PO PRN (06:32)
[2018-10-10] MEDS: PRENATAL VITAMINS W/ FOLIC ACID TABLET (FP) PO SCH (09:55)
[2018-10-10] MEDS: ATENOLOL 50 MG TABLET (FP) PO SCH (09:55)
[2018-10-10] MEDS: RANITIDINE HCL 150 MG TABLET (FP) PO SCH ×2 (09:55→21:18)
[2018-10-10] MEDS: DULoxetine HCL 20 MG CAPSULE.DR (FP) PO SCH (09:55)
[2018-10-10] MEDS: BUPRENORPHINE/NALOXONE 8 MG/2 MG FILM PACKET SL SCH ×2 (09:56→21:21)
[2018-10-10] MEDS: METHYL SALICYLATE/MENTHOL OINT 30 GM TUBE TP SCH ×2 (09:56→21:20)
[2018-10-10] MEDS: NICOTINE 21 MG/24 HOURS TOPICAL PATCH TD SCH (09:56)
[2018-10-10] MEDS: AMMONIUM LACTATE 12% LOTION 225 GM BOTTLE TP SCH (09:56)
[2018-10-10] MEDS: NICOTINE POLACRILEX 4 MG GUM BC PRN (09:56)
[2018-10-10] MEDS: ACETAMINOPHEN 325 MG TABLET (FP) PO PRN ×2 (09:56→21:19)
[2018-10-10] MEDS: hydrOXYzine PAMOATE 50 MG CAPSULE (FP) PO PRN ×2 (09:59→21:18)
[2018-10-10] MEDS: traZODone HCL 50 MG TABLET (FP) PO SCH (21:18)
[2018-10-10] MEDS: THIAMINE HCL 100 MG TABLET (FP) PO SCH (21:18)
[2018-10-11] MEDS: CYCLOBENZAPRINE HCL 10 MG TABLET (FP) PO SCH ×3 (06:44→21:26)
[2018-10-11] MEDS: P-EPHED 60MG/TRIPROLIDI 2.5MG TABLET PO PRN ×2 (06:44→21:27)
[2018-10-11] MEDS: ACETAMINOPHEN 325 MG TABLET (FP) PO PRN (06:46)
[2018-10-11] MEDS: PRENATAL VITAMINS W/ FOLIC ACID TABLET (FP) PO SCH (09:36)
[2018-10-11] MEDS: BUPRENORPHINE/NALOXONE 8 MG/2 MG FILM PACKET SL SCH ×2 (09:36→21:27)
[2018-10-11] MEDS: DULoxetine HCL 20 MG CAPSULE.DR (FP) PO SCH (09:36)
[2018-10-11] MEDS: NICOTINE 21 MG/24 HOURS TOPICAL PATCH TD SCH (09:36)
[2018-10-11] MEDS: ATENOLOL 50 MG TABLET (FP) PO SCH (09:36)
[2018-10-11] MEDS: RANITIDINE HCL 150 MG TABLET (FP) PO SCH ×2 (09:36→21:26)
[2018-10-11] MEDS: METHYL SALICYLATE/MENTHOL OINT 30 GM TUBE TP SCH ×2 (09:37→21:27)
[2018-10-11] MEDS: hydrOXYzine PAMOATE 50 MG CAPSULE (FP) PO PRN (09:38)
[2018-10-11] MEDS: AMMONIUM LACTATE 12% LOTION 225 GM BOTTLE TP SCH (09:39)
[2018-10-11] MEDS: traZODone HCL 50 MG TABLET (FP) PO SCH (21:26)
[2018-10-11] MEDS: THIAMINE HCL 100 MG TABLET (FP) PO SCH (21:26)
[2018-10-11] MEDS: cloNIDine HCL 0.1 MG TABLET PO PRN (21:47)
[2018-10-12 06:47] VITALS: BP 144/88; PULSE 73; TEMP 98.1
[2018-10-12] MEDS: CYCLOBENZAPRINE HCL 10 MG TABLET (FP) PO SCH (07:46)
[2018-10-12] MEDS: guaiFENesin/D-METHORPHAN HB 10 ML UNIT-DOSE CUPS PO PRN (07:48)
[2018-10-12] MEDS: BUPRENORPHINE/NALOXONE 8 MG/2 MG FILM PACKET SL SCH (09:52)
[2018-10-12] MEDS: ATENOLOL 50 MG TABLET (FP) PO SCH (09:52)
[2018-10-12] MEDS: PRENATAL VITAMINS W/ FOLIC ACID TABLET (FP) PO SCH (09:52)
[2018-10-12] MEDS: RANITIDINE HCL 150 MG TABLET (FP) PO SCH (09:53)
[2018-10-12] MEDS: cloNIDine HCL 0.1 MG TABLET PO PRN (09:53)
[2018-10-12] MEDS: DULoxetine HCL 20 MG CAPSULE.DR (FP) PO SCH (09:53)
[2018-10-12] MEDS: METHYL SALICYLATE/MENTHOL OINT 30 GM TUBE TP SCH (09:57)
[2018-10-12] MEDS: NICOTINE 21 MG/24 HOURS TOPICAL PATCH TD SCH (11:12)
[2018-10-12] MEDS: AMMONIUM LACTATE 12% LOTION 225 GM BOTTLE TP SCH (11:12)
--- NOTE | 2018-10-12 15:14 | PN ---
[facility] Progress Note Note: PT COMPLETED REHAB AND DISCHARGED TODAY. PT MET WITH HIS COUNSELOR, FELICITY CAMPBELL AND WAS REFERRED TO [facility] CD PROGRAM WHERE HE WILL CONTINUE WITH SUBOXONE TREATMENT PLANNED. PT IS ALERT O X 3. Vital Signs - 24 hr 10/11/18 10/12/18 10/12/18 21:00 00:30 03:30 Temperature Pulse Rate 70 Respiratory 18 18 Rate Blood Pressure 138/93 10/12/18 06:46 Temperature 98.1 F Pulse Rate 73 Respiratory 18 Rate Blood Pressure 144/88 NAD MEDICALLY STABLE PLAN:FOLLOW UP WITH CD AFTERCARE/MEDICAL MANAGEMENT AT [facility] RECOMMENDED ON 10/12/18 AT 11:00 TODAY. FOLLOW UP WITH ORTHOPEDICS TO ADDRESS LEFT FOOT PROBLEM.
== END 2018-10-12 10:30 | disposition home or self-care (01) | DRG 772 ==
LOC: YASAS 13:58 → Y3W 17:29 → Y5N 18:59
PROVIDERS: ADMIT Psychiatry & Neurology Psychiatry; ATTEND Psychiatry & Neurology Psychiatry
PROC: HZ42ZZZ Group Counseling for Substance Abuse Treatment, Cognitive-Behavioral (ICD-10-PCS; principal; 2018-09-24)
DX: F11.20 Opioid dependence, uncomplicated (principal); F17.210 Nicotine dependence, cigarettes, uncomplicated; F19.24 Other psychoactive substance dependence with psychoactive substance-induced mood disorder; F19.282 Other psychoactive substance dependence with psychoactive substance-induced sleep disorder; I10 Essential (primary) hypertension; K21.9 Gastro-esophageal reflux disease without esophagitis; G47.00 Insomnia, unspecified; R60.0 Localized edema; Z59.0 Homelessness
CPT/HCPCS: 36415; 73610-TC-LT-FY; 80053; 81003; 81015; 85027; 86593; 87389; 90732; G0009; J0735